=== PATIENT | female | born 1955 | race Caucasian/White ===

== ENCOUNTER 2016-08-23 13:35 | Outpatient (CLI) | payer OTHER | END 2016-08-23 18:37 | disposition home or self-care (01) | LOC: SMA 13:35 | DX: Z12.31 Encounter for screening mammogram for malignant neoplasm of breast (principal) | CPT/HCPCS: G0202 ==

== ENCOUNTER 2017-12-14 14:15 | Outpatient (CLI) | payer OTHER | END 2017-12-14 20:45 | disposition home or self-care (01) | LOC: SMA 14:15 | DX: Z12.31 Encounter for screening mammogram for malignant neoplasm of breast (principal) | CPT/HCPCS: 77067 ==

== ENCOUNTER 2019-09-03 10:53 | Outpatient (CLI) | payer OTHER, MEDICARE | END 2019-09-03 19:19 | disposition home or self-care (01) | LOC: SMA 10:53 | DX: Z12.31 Encounter for screening mammogram for malignant neoplasm of breast (principal); N64.89 Other specified disorders of breast | CPT/HCPCS: 77067 ==

== ENCOUNTER 2023-09-08 10:51 | Outpatient (CLI) | payer OTHER, MEDICARE | END 2023-09-08 20:58 | disposition home or self-care (01) | LOC: SMA 10:51 | DX: Z12.31 Encounter for screening mammogram for malignant neoplasm of breast (principal); Z98.890 Other specified postprocedural states | CPT/HCPCS: 77067 ==